=== PATIENT | male | born 1995 | race Caucasian/White ===

== ENCOUNTER 2018-09-30 17:12 | Emergency (ER) | payer OTHER ==
[2018-09-30 17:53] VITALS: BP 140/58; PULSE 78; TEMP 98.1; BMI 23.5
[2018-09-30] MEDS ORDERED: SODIUM CHLORIDE FOR INHALATION 3 ML VIAL.NEB IH ONE (18:42)
[2018-09-30] MEDS ORDERED: PSEUDOEPHEDRINE HCL 30 MG TABLET PO ONE (18:42)
--- NOTE | 2018-09-30 18:42 | PDOC ---
History of Present Illness - General Chief Complaint: Shortness of Breath Stated Complaint: DIFF BREATHING, COLD SYMPTOMS Time Seen by Provider: 09/30/18 17:43 History Source: Patient Exam Limitations: No Limitations - History of Present Illness Initial Comments: 09/30/18 19:20 Patient is a 23-year-old male with no past medical history who presents to the ER today for nasal congestion for 4 days. Patient states he has trouble breathing at night due to congestion. He states that in the morning he wakes up with a dry mouth. Denies fevers, chills, cough, sore throat, earache and difficulty breathing. Past History - Travel Traveled outside of the country in the last 30 days: No Close contact w/someone who was outside of country & ill: No - Past Medical History Allergies/Adverse Reactions: Allergies Allergy/AdvReac Type Severity Reaction Status Date / Time No Known Allergies Allergy Verified 09/30/18 17:43 Home Medications: Ambulatory Orders Fluticasone Prop 0.05% Nasal [Flonase -] 1 - 2 spray NS DAILY #1 spray.pump Pseudoephedrine HCl [Nasal Decongestant] 30 mg PO Q4H #30 tablet 09/30/18 COPD: No CHF: No - Immunization History Immunization Up to Date: Yes - Suicide/Smoking/Psychosocial Hx Smoking Status: No Smoking History: Never smoked Number of Cigarettes Smoked Daily: 0 Information on smoking cessation initiated: No Hx Alcohol Use: No Drug/Substance Use Hx: No Review of Systems - Review of Systems Able to Perform ROS?: Yes Comments:: 09/30/18 19:21 CONSTITUTIONAL: Absent: fever, chills, diaphoresis, generalized weakness, malaise, loss of appetite HEENT: Present: nasal congestion Absent: rhinorrhea, throat pain, throat swelling, difficulty swallowing, mouth swelling, ear pain, eye pain, visual Changes CARDIOVASCULAR: Absent: chest pain, loss of consciousness, palpitations, irregular heart rate, peripheral edema RESPIRATORY: Absent: cough, shortness of breath, dyspnea with exertion, orthopnea, wheezing, stridor, hemoptysis GASTROINTESTINAL: Absent: abdominal pain, abdominal distension, nausea, vomiting, diarrhea, constipation, melena, hematochezia GENITOURINARY: Absent: dysuria, frequency, urgency, hesitancy, hematuria, flank pain, genital pain MUSCULOSKELETAL: Absent: myalgia, arthralgia, joint swelling SKIN: Absent: rash, itching, pallor HEMATOLOGIC/IMMUNOLOGIC: Absent: easy bleeding, easy bruising, lymphadenopathy, frequent infections ENDOCRINE: Absent: unexplained weight gain, unexplained weight loss, heat intolerance, cold intolerance NEUROLOGIC: Absent: headache, focal weakness or paresthesias, dizziness, unsteady gait, seizure, mental status changes, bladder or bowel incontinence PSYCHIATRIC: Absent: anxiety, depression, suicidal or homicidal ideation, hallucinations. Is the patient limited Estonian proficient: No *Physical Exam - Vital Signs Last Vital Signs Temp Pulse Resp BP Pulse Ox 98.1 F 78 16 140/58 L 99 09/30/18 17:43 09/30/18 17:43 09/30/18 17:43 09/30/18 17:43 09/30/18 17:43 - Physical Exam Comments: 09/30/18 19:21 GENERAL: Well developed, well nourished. Awake and alert. No acute distress. HEENT: Normocephalic, atraumatic. PERRLA, EOMI. No conjunctival pallor. Sclera are non- icteric. Moist mucous membranes. Oropharynx is clear. Nasal turbinates injected , + green mucous noted in nares b/l NECK: Supple. Full ROM. No JVD. Carotid pulses 2+ and symmetric, without bruits. No thyromegaly. No lymphadenopathy. CARDIOVASCULAR: Regular rate and rhythm. No murmurs, rubs, or gallops. Distal pulses are 2+ and symmetric. PULMONARY: No evidence of respiratory distress. Lungs clear to auscultation bilaterally. No wheezing, rales or rhonchi. SKIN: Warm and dry. Normal capillary refill. No rashes. No jaundice. NEUROLOGICAL: Alert, awake, appropriate. Cranial nerves 2-12 intact. No deficits to light touch and temperature in face, upper extremities and lower extremities. No motor deficits in the in face, upper extremities and lower extremities. Normoreflexic in the upper and lower extremities. Normal speech. Toes are down- going bilaterally. Gait is normal without ataxia. PSYCHIATRIC: Cooperative. Good eye contact. Appropriate mood and affect. Moderate Sedation - Procedure Monitoring Vital Signs: Procedure Monitoring Vital Signs Temperature 98.1 F 09/30/18 17:43 Pulse Rate 78 09/30/18 17:43 Respiratory Rate 16 03/18/19 17:43 Blood Pressure 140/58 L 09/30/18 17:43 O2 Sat by Pulse Oximetry (%) 99 09/30/18 17:43 Medical Decision Making - Medical Decision Making 09/30/18 19:22 Patient is a 23-year-old male past medical history who presents to the ER for 4 days of congestion. On exam patient with injected nasal turbinates. Lungs clear to auscultation bilaterally. Breathing treatment and Sudafed given in the ER with some relief of symptoms. Patient is afebrile Most likely a common cold. Discharge home I discussed the physical exam findings, ancillary test results and final diagnoses with the patient. I answered all of the patient's questions. The patient was satisfied with the care received and felt comfortable with the discharge plan and treatment plan. The Patient agrees to follow up with the primary care physician/specialist within 24-72 hours. Return precautions were given. *DC/Admit/Observation/Transfer Diagnosis at time of Disposition: Nasal congestion - Discharge Dispostion Disposition: HOME Condition at time of disposition: Stable Decision to Admit order: No - Referrals Referrals: Johan Rush MD [Staff Physician] - - Patient Instructions Printed Discharge Instructions: DI for Nasal Congestion Additional Instructions: You were evaluated for your nasal congestion Take the pseudophed and flonase as directed Return to the ED for any new or worsening symptoms - Post Discharge Activity Forms/Work/School Notes: Back to Work
[2018-09-30] MEDS ORDERED: PSEUDOEPHEDRINE HCL 60 MG TABLET ONE (18:47)
--- NOTE | 2018-10-02 12:09 | EKG ---
Test Reason : Blood Pressure : / mmHG Vent. Rate : 064 BPM Atrial Rate : 064 BPM P-R Int : 206 ms QRS Dur : 104 ms QT Int : 400 ms P-R-T Axes : 065 068 045 degrees QTc Int : 412 ms SINUS RHYTHM WITH MARKED SINUS ARRHYTHMIA OTHERWISE NORMAL ECG NO PREVIOUS ECGS AVAILABLE Confirmed by KAYCEE REYES MD ([id number]) on 10/02/2018 12:09:27 PM Referred By: Confirmed By:KAYCEE REYES MD
== END 2018-09-30 19:43 | disposition home or self-care (01) ==
LOC: JERFT 17:12
PROC: 3E0F7GC Introduction of Other Therapeutic Substance into Respiratory Tract, Via Natural or Artificial Opening (ICD-10-PCS; principal; 2018-09-30)
DX: J34.89 Other specified disorders of nose and nasal sinuses (principal)
CPT/HCPCS: 93005; 93010; 94640; 99281-25